=== PATIENT | male | born 1960 | race Caucasian/White ===

== ENCOUNTER → 2023-10-27 18:49 | Outpatient (REF) | payer BC, SELFPAY | LOC: MRI 18:49 | PROVIDERS: ATTENDING PHYSICIAN Specialist; FAMILY PHYSICIAN Internal Medicine | DX: N28.89 Other specified disorders of kidney and ureter (principal) | CPT/HCPCS: 74183; A9575 ==

== ENCOUNTER → 2023-12-16 16:21 | Outpatient (REF) | payer BC, SELFPAY | LOC: HWRAD 16:21 | PROVIDERS: ATTENDING PHYSICIAN Internal Medicine | DX: M25.511 Pain in right shoulder (principal) | CPT/HCPCS: 73030 ==

== ENCOUNTER → 2024-03-09 20:32 | Outpatient (REF) | payer BC, SELFPAY | LOC: MRI 20:32 | PROVIDERS: ATTENDING PHYSICIAN Internal Medicine | DX: M25.511 Pain in right shoulder (principal) | CPT/HCPCS: 73221 ==

== ENCOUNTER 2025-02-01 17:35 | Emergency (ER) | payer BC, SELFPAY ==
[2025-02-01 17:47] VITALS: BP 165/84
[2025-02-01 18:03] LABS: % Basophils 0.2 % (0-2); % Eosinophils 0.9 % (0-6); % Immature Granulocytes 0.5 % (0-0.5); % Lymphocytes 15.3 % (20.5-51.1); % Monocytes 9.1 % (1.7-9.3); Absolute Eosinophils 0.1 10^3/uL (0-0.7); Absolute Immature Granulocytes 0.1 10^3/uL (0-0.05); Absolute Lymphocytes 1.8 10^3/uL (1.2-3.4); Absolute Monocytes 1.1 10^3/uL (0.1-0.6); Absolute Neutrophils 8.8 10^3/uL (1.4-6.5); Hematocrit 39.4 % (39.0-52.0); Hemoglobin 13.3 g/dL (13.0-18.0); Mean Corp Hgb Conc. 33.8 g/dL (33.0-37.0); Mean Corpuscular Hgb 30.9 pg (27.0-31.0); Mean Corpuscular Volume 91.4 fL (80.0-94.0); Mean Platelet Volume 8.6 fL (7.4-10.4); Nucleated Red Blood Cells % 0 % (-); Platelet Count 174 10^3/uL (130-400); Red Blood Cell Count 4.31 10^6/uL (4.70-6.10); Red Cell Dist. Width 13.6 % (11.5-14.5); White Blood Cell Count 11.9 10^3/uL (4.8-10.8)
[2025-02-01 18:17] LABS: Lactic Acid 1.3 mmol/L (0.7-2.0)
[2025-02-01 18:22] LABS: ALT (SGPT) 21 U/L (0-50); AST (SGOT) 19 U/L (17-59); Albumin 4.6 g/dl (3.5-5.0); Alkaline Phosphatase 43 U/L (38-126); Blood Urea Nitrogen 15 mg/dl (9-20); Calcium 9.3 mg/dl (8.4-10.2); Carbon Dioxide 32 mmol/L (22-30); Chloride 105 mmol/L (98-107); Glucose 93 mg/dl (70-99); Lipase 154 U/L (23-300); Potassium 4.8 mmol/L (3.5-5.1); Sodium 143 mmol/L (135-145); Total Bilirubin 0.9 mg/dl (0.2-1.3); Total Protein 7.2 g/dl (6.3-8.2); eGFR > 60.00
[2025-02-01 20:57] VITALS: BP 145/84; BMI 26.0
[2025-02-01 22:31] LABS: Urine Albumin Negative (Neg - Trace); Urine Bilirubin Negative (Negative); Urine Character Clear (Clear); Urine Color Yellow; Urine Glucose Negative (Negative); Urine Ketone 1+ (Negative); Urine Leukocyte Negative (Negative); Urine Nitrite Negative (Negative); Urine Occult Blood Negative (Negative); Urine Specific Gravity 1.005 (<1.030); Urine Urobilinogen Negative (Neg - 1+)
[2025-02-01 22:51] VITALS: BP 130/75
[2025-02-01] MEDS: DILAUDID 0.5 MG IV (23:19)
[2025-02-01] MEDS: ZOSYN 50 IV (23:24)
--- NOTE | 2025-02-01 23:24 | ED.GENMED ---
History of Present Illness
General
Chief Complaint: Abdominal Pain
Time Seen by Provider: 02/01/25 20:48
History of Present Illness
History of Present Illness:
65-year-old male presents the emergency department for evaluation of lower abdominal pain radiating across bilateral aspects for the past 1 to 2 days. States he has had frequent bowel movements as well. He states it does not feel similar to his
prior bouts of diverticulitis. Denies any fevers or chills at home. Appetite has been normal. Does have a history of psoriatic arthritis on Humira
Past History
Past History
ED Past Medical History: CAD, HTN, Other (Psoriasis ) and Other (gout)
ED Past Surgical History: Orthopedic
Social History
Tobacco: Former smoker
Alcohol: None
Drug: None
Personal:
Living: with family
Employment: Employed
Family History
Family History: Other (Noncontributory)
Review of Systems
Review of Systems
Allergies reviewed?: Yes
All Other Systems: ROS reviewed and negative except as documented in HPI and ROS
Phy Exam
Physical Exam
Physical Exam:
GEN: Well appearing, NAD, WDWN
HEENT: Oral mucosa moist, no scleral icterus
Cardiac: Regular rate
Lung: No respiratory distress, no tachypnea
Abdomen: Soft, diffuse lower abdominal tenderness, nonfocal, no rigidity
MSK: No gross deformity or injuries
Skin: Good color, no pallor or jaundice, no rashes
Neuro: AO x3, moves all extremities freely
Psych: Calm, cooperative
Course
Orders/Labs/Results
Orders:
Orders
02/01/25 17:55
Complete Blood Count/With Diff Urgent
Comprehensive Metabolic Panel Urgent
Lactic Acid Urgent
Lipase Urgent
02/01/25 20:57
CT Abd/Pel (IV only)-DH only Urgent
Comment:
Reason For Exam: lower abd pain/fever
02/01/25 22:27
Urinalysis Reflex To Culture Urgent
Date Specimen was Collected: 02/01/25
Time Specimen was Collected: 22:25
02/01/25 23:07
HYDROmorphone [Dilaudid] 0.5 mg IV NOW STA
Piperacillin/Tazo 3.375 Gram [Zosyn] 3.375 gram in 50 ml IV NOW
Abnormal Lab Results
02/01/25 02/01/25
17:55 22:27
WBC 11.9 H 10^3/uL
(4.8-10.8)
RBC 4.31 L 10^6/uL
(4.70-6.10)
Abs Immat Gran (auto) 0.1 H 10^3/uL
(0-0.05)
Absolute Neuts (auto) 8.8 H 10^3/uL
(1.4-6.5)
Absolute Monos (auto) 1.1 H 10^3/uL
(0.1-0.6)
Lymphocytes % 15.3 L %
(20.5-51.1)
Carbon Dioxide 32 H mmol/L
(22-30)
Urine Ketones 1+ A
(Negative)
02/01/25 17:55
02/01/25 17:55
Vital Signs
Initial and Last Documented VS:
Initial Vital Signs
Temp Pulse Resp BP Pulse Ox
99.5 F 66 16 165/84 98
02/01/25 17:47 02/01/25 17:47 02/01/25 17:47 02/01/25 17:47 02/01/25 17:47
Last Documented Vital Signs
Temp Pulse Resp BP Pulse Ox
99.6 F 62 18 127/78 97
02/01/25 22:53 02/02/25 00:07 02/02/25 00:07 02/02/25 00:07 02/02/25 00:07
MDM/Problems Addressed
MDM/Problems Addressed:
Patient is a nonperitoneal exam, he was noted to have brief elevated temp however this resolved without antipyretics given. He is immunocompromised on Humira however at this time I feel he is suitable for outpatient management, will give initial
dose IV antibiotics in the ED and then discharged on p.o. antibiotics. Stressed the importance of clear liquid diet
*Critical Care Note
Total Time (30-74mins, 75-104mins- exclusive of procedures): Not Applicable
ED Attending Note
-
Portions of this chart may have been created with voice recognition software.� Occasional wrong word or��sound alike� substitutions may have occurred due to the inherent limitations of voice recognition software.
Discharge Plan
Departure
Patient Disposition: Home (Routine Discharge)
Date of Disposition: 02/01/25
Time of Disposition: 23:25
Patient with high blood pressure during this ER visit?: No
Discharge Problem:
Acute diverticulitis
Instructions: Clear Liquid Diet, Diverticulitis (DC)
Prescriptions:
New
amoxicillin-pot clavulanate 875-125 mg tablet
1 tab PO BID 10 Days Qty: 20 0RF
No Action
rosuvastatin 5 MG tablet
5 mg PO HS
atenolol [Tenormin] 100 MG tablet
100 mg PO DAILY
allopurinol 100 MG tablet
100 mg PO DAILY
multivitamin with folic acid [Tab-A-Tamar] 1 TABLET tablet
1 tab PO DAILY
ascorbic acid (vitamin C) 250 MG tablet
1,000 mg PO BID
gabapentin 300 MG capsule
300 mg PO TID
aspirin 81 MG tablet,delayed release (DR/EC)
81 mg PO DAILY
Patient Comments:
08/03/2020: Stopped prior to surgery, supposed to re-start on 08/06/2020
cholecalciferol (vitamin D3) 1,000 UNITS tablet
1,000 units PO DAILY
adalimumab [Humira(CF)] 40 MG/0.4 ML syringe kit
40 mg SQ WEEKLY
Patient Comments:
08/03/2020: Stopped prior to surgery, check in 2 weeks about resuming
quinapril [Accupril] 40 MG tablet
40 mg PO DAILY
levothyroxine 25 MCG tablet
25 mcg PO DAILY
hydrochlorothiazide 12.5 MG tablet
12.5 mg PO DAILY
Referrals:
Dominique Ruth MD [Family Provider, Internal Medicine]
Interventions
Interventions:
*Risk Screen - Suicide Last Done: 02/01/25 20:58
*General Assessment Last Done: 02/01/25 20:58
*Neglect/Abuse Screening Last Done: 02/01/25 20:58
*ED- Fall Risk Assessment Last Done: 02/01/25 20:58
*ED COVID-19 Vaccine History Last Done: 02/01/25 20:58
*Nursing Disposition Last Done: 02/02/25 00:12
TT-Ftvwgv-Swlickniyj Assessment Last Done: 02/01/25 21:04
Discharge Date and Time
Discharge Date/Time: 02/02/25 00:16
Print Language: UKRAINIAN
[2025-02-02 00:07] VITALS: BP 127/78
== END 2025-02-02 00:16 | disposition home or self-care (01) ==
LOC: EMR 17:35
PROVIDERS: Physician Assistant; Student in an Organized Health Care Education/Training Program; EMERGENCY PHYSICIAN Emergency Medicine; FAMILY PHYSICIAN Internal Medicine
DX: K57.32 Diverticulitis of large intestine without perforation or abscess without bleeding (principal); I25.10 Atherosclerotic heart disease of native coronary artery without angina pectoris; I10 Essential (primary) hypertension; Z87.891 Personal history of nicotine dependence; L40.50 Arthropathic psoriasis, unspecified; Z79.620 Long term (current) use of immunosuppressive biologic
CPT/HCPCS: 96365; 96375; 99284; 74177; 80053; 81003; 83605; 83690; 85025; Q9967

== ENCOUNTER → 2025-05-26 21:03 | Emergency (ER) | payer BC, SELFPAY ==
[2025-05-26 21:05] VITALS: BP 161/82
--- NOTE | 2025-05-26 21:29 | ED.GENMED ---
History of Present Illness
General
Chief Complaint: Abdominal Pain
Time Seen by Provider: 05/26/25 21:22
History of Present Illness
History of Present Illness:
65-year-old male presents the emergency department for evaluation of left lower quadrant abdominal pain for the past week. Initially felt as though he may have strained a muscle but the pain persisted. Feels comparable to his past bouts of
diverticulitis. No fevers or chills. Eating and drinking well with no vomiting. Denies diarrhea or constipation.
Past History
Past History
ED Past Medical History: CAD, HTN, Other (Psoriasis ) and Other (gout)
ED Past Surgical History: Orthopedic
Social History
Tobacco: Former smoker
Alcohol: None
Drug: None
Personal:
Living: with family
Employment: Employed
Family History
Family History: Other (Noncontributory)
Review of Systems
Review of Systems
Allergies reviewed?: Yes
All Other Systems: ROS reviewed and negative except as documented in HPI and ROS
Phy Exam
Physical Exam
Physical Exam:
GEN: Well appearing, NAD, WDWN
HEENT: Oral mucosa moist, no scleral icterus
Cardiac: Regular rate
Lung: No respiratory distress, no tachypnea
Abdomen: Soft, moderate suprapubic and left lower quadrant tenderness, no rigidity or peritoneal signs
MSK: No gross deformity or injuries
Skin: Good color, no pallor or jaundice, no rashes
Neuro: AO x3, moves all extremities freely
Psych: Calm, cooperative
Course
Orders/Labs/Results
Orders:
Orders
05/26/25 21:28
Amoxicillin 875 mg/Clav 125 mg [Augmentin 875 mg/125 mg] 1 tablet PO NOW STA
Vital Signs
Initial and Last Documented VS:
Initial Vital Signs
Temp Pulse Resp BP Pulse Ox
98.4 F 59 15 161/82 99
05/26/25 21:05 05/26/25 21:05 05/26/25 21:05 05/26/25 21:05 05/26/25 21:05
Last Documented Vital Signs
Temp Pulse Resp BP Pulse Ox
98.4 F 59 15 161/82 99
05/26/25 21:05 05/26/25 21:05 05/26/25 21:05 05/26/25 21:05 05/26/25 21:33
MDM/Problems Addressed
MDM/Problems Addressed:
Discussed with the patient at this time given his normal vitals and relatively benign exam I have a low suspicion of perforation or abscess. I did discuss the potential benefit of imaging and labs versus trial of oral antibiotics and clear liquid
diet, at this time through shared decision making we opted for clear liquid diet and oral antibiotics with return to the ED if worsening in the next 2 to 3 days.
*Pulse Oximetry
SaO2: 99
Oxygen Mode of Delivery: Room air
Patient hypoxic: no
*Critical Care Note
Total Time (30-74mins, 75-104mins- exclusive of procedures): Not Applicable
ED Attending Note
-
Portions of this chart may have been created with voice recognition software.� Occasional wrong word or��sound alike� substitutions may have occurred due to the inherent limitations of voice recognition software.
Discharge Plan
Departure
Patient Disposition: Home (Routine Discharge)
Date of Disposition: 05/26/25
Time of Disposition: 21:31
Patient with high blood pressure during this ER visit?: No
Discharge Problem:
Diverticulitis
Instructions: Clear Liquid Diet, Diverticulitis (DC)
Prescriptions:
New
amoxicillin-pot clavulanate 875-125 mg tablet
1 tab PO BID Qty: 20 0RF
No Action
rosuvastatin 5 MG tablet
5 mg PO HS
atenolol [Tenormin] 100 MG tablet
100 mg PO DAILY
allopurinol 100 MG tablet
100 mg PO DAILY
multivitamin with folic acid [Tab-A-Tamar] 1 TABLET tablet
1 tab PO DAILY
ascorbic acid (vitamin C) 250 MG tablet
1,000 mg PO BID
gabapentin 300 MG capsule
300 mg PO TID
aspirin 81 MG tablet,delayed release (DR/EC)
81 mg PO DAILY
Patient Comments:
08/03/2020: Stopped prior to surgery, supposed to re-start on 08/06/2020
cholecalciferol (vitamin D3) 1,000 UNITS tablet
1,000 units PO DAILY
adalimumab [Humira(CF)] 40 MG/0.4 ML syringe kit
40 mg SQ WEEKLY
Patient Comments:
08/03/2020: Stopped prior to surgery, check in 2 weeks about resuming
quinapril [Accupril] 40 MG tablet
40 mg PO DAILY
levothyroxine 25 MCG tablet
25 mcg PO DAILY
hydrochlorothiazide 12.5 MG tablet
12.5 mg PO DAILY
amoxicillin-pot clavulanate 875-125 mg tablet
1 tab PO BID 10 Days Qty: 20 0RF
Interventions
Interventions:
*Risk Screen - Suicide Last Done: 05/26/25 21:40
*General Assessment Last Done: 05/26/25 21:05
*Neglect/Abuse Screening Last Done: 05/26/25 21:05
*ED COVID-19 Vaccine History Last Done: 05/26/25 21:05
ZM-[id number]-Svvtrdekpu Assessment Last Done: 05/26/25 21:33
Discharge Date and Time
Print Language: BENGALI
[2025-05-26 21:32] VITALS: BMI 26.3
[2025-05-26] MEDS: AUGMENTIN 875 MG/125 MG 1 TABLET PO (21:39)
== END | disposition home or self-care (01) ==
LOC: EMR 21:03
PROVIDERS: EMERGENCY PHYSICIAN Student in an Organized Health Care Education/Training Program; FAMILY PHYSICIAN Internal Medicine
DX: K57.32 Diverticulitis of large intestine without perforation or abscess without bleeding (principal); I25.10 Atherosclerotic heart disease of native coronary artery without angina pectoris; I10 Essential (primary) hypertension; L40.9 Psoriasis, unspecified; Z87.891 Personal history of nicotine dependence
CPT/HCPCS: 99282